=== PATIENT | male | born 1960 | race Caucasian/White ===

== ENCOUNTER 2017-10-26 07:54 | Emergency (ER) | payer OTHER ==
[~2017-10-26] VITALS: Ht 182.9 cm; Wt 103.0 kg
[~2017-10-26 07:54] MED LIST: ATORVASTATIN CA20 MG PO; LISINOPRIL10 MG PO
[2017-10-26 07:58] VITALS: BP 130/81
[2017-10-26] MEDS ORDERED: NAPROXEN500 MG PO (09:39)
== END 2017-10-26 10:22 | disposition home or self-care (01) ==
LOC: EME 07:54
DX: S83.421A Sprain of lateral collateral ligament of right knee, initial encounter (principal); Y93.K1 Activity, walking an animal; E78.5 Hyperlipidemia, unspecified; I10 Essential (primary) hypertension; Z87.891 Personal history of nicotine dependence
CPT/HCPCS: 73564; 99281; 99284